=== PATIENT | male | born 1955 | race Caucasian/White ===

== ENCOUNTER 2020-03-01 21:09 | Observation (INO) | payer OTHER, SELFPAY ==
--- NOTE | ~2020-03-01 | XR_ITS ---
EXAMINATION: XR chest 2V DATE: 03/01/2020 22:03 INDICATION: Left-sided chest pain TECHNIQUE: PA and lateral views of the chest were obtained. COMPARISON: Chest graft dated 02/03/[address] dated 03/02/2015 FINDINGS: Calcified right middle lobe nodule consistent with old granulomatous disease. No other airspace opaci ties, pulmonary edema, pleural effusion or pneumothorax. The cardiomediastinal silhouette is normal. Post cystectomy clips in the right upper quadrant. IMPRESSION: 1. No acute cardiopulmonary disease. Reviewed, dictated and finalized at location A.
--- NOTE | 2020-03-01 21:00 | ECG_ITS ---
Measurements Intervals [place] Rate: 107 P: -30 DE: 192 QRS: 144 QRSD: 150 T: -11 QT: 369 QTc: 493 Interpretive Statements SINUS TACHYCARDIA VENTRICULAR PREMATURE COMPLEX RIGHT BUNDLE BRANCH BLOCK LEFT POSTERIOR FASCICULAR BLOCK ST-T WAVE ABNORMALITY IN INFERIOR LEADS- CONSIDER ISCHEMIA BASELINE ARTIFACT- II, III, AVR, AVF ABNORMAL ECG Electronically Signed On 03-02-2020 7:04:02 CDT by Usman Phillips D.O.
[2020-03-01 21:09] VITALS: BP 140/88; PULSE 107; RESP 17; TEMP 36.4; O2SAT 97
[2020-03-01 21:13] VITALS: PULSE 108
--- NOTE | 2020-03-01 21:17 | ED.CHESTPAIN ---
HPI - Chest Pain General Chief Complaint: Chest Pain Stated Complaint: chest pain Source: RN notes reviewed History of Present Illness HPI narrative: Patient presents emergency department from home for chest pain. Patient states pain is been present for the past 2 days. Pain is located left side of the chest and is described as a soreness. States is worse with exertion and improves with rest. He states he does have a history of 2 previous stents he denies any fevers or chills shortness of breath abdominal pain vomiting or diarrhea. Notes mild nausea. He denies any other symptoms at this time patient was given aspirin 324 mg by EMS and 1 nitro which patient states made minimal change Related Data Home Medications Medication Instructions Recorded Confirmed Januvia 100 mg PO DAILY 07/28/19 07/28/19 Levemir FlexTouch U-100 Insuln 57 unit SUBCUT AC 07/28/19 07/28/19 aspirin 81 mg PO DAILY 07/28/19 07/28/19 atorvastatin 20 mg PO DAILY 07/28/19 07/28/19 glimepiride 2 mg PO DAILY 07/28/19 07/28/19 Allergies Allergy/AdvReac Type Severity Reaction Status Date / Time No Known Allergies Allergy Verified 03/01/20 21:14 Review of Systems Review of Systems: Narrative: Gen.: Denies fevers or chills ENT: Denies congestion Respiratory: Denies shortness of breath or cough CV: See HPI GI: Denies abdominal pain emesis or diarrhea. Reports mild nausea denies burning, urgency, frequency or hematuria Musculoskeletal: Denies back pain or muscle pain Neuro: Denies numbness, tingling, weakness or focal weakness Skin: Denies rash Except as documented, all other systems reviewed and negative [facility] Past Medical History Medical History CAD S/P percutaneous coronary angioplasty [facility] Cardiology with 2x PCI placed in the past Cataracts, bilateral s/p removal Detached retina, right HTN (hypertension) Hyperlipidemia Leukocytosis CINDY (obstructive sleep apnea) Noncompliant with CPAP Type II diabetes mellitus Surgical History Surgical History H/O inguinal hernia repair Left inguinal hernia repair with mesh by Dr. Ladd in 2010. History of cardiac catheterization History of cholecystectomy Hx of cataract removal with insertion of prosthetic lens S/P wisdom tooth extraction Stented coronary artery Social History Social History Social History: He lives in [place], [place] with his and daughter. 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 Smoking status: Never smoker Alcohol intake: current Drinks per week: 2 Substance use: never Gender identity (if verbalized by the patient): Male Spiritual care concerns: No Agree to blood products: Yes Exam Narrative: Exam Narrative: APPEARANCE: No acute distress, nontoxic, resting in bed EYES: EOMI HEENT: Normocephalic, atraumatic, OMM RESPIRATORY: No respiratory distress Clear to auscultation bilaterally with no rhonchi wheezing or rales. CARDIOVASCULAR: Regular rate and rhythm without murmurs rubs or gallops. ABDOMINAL: Soft, nontender, nondistended, no rebound or guarding MUSCULOSKELETAl: Moves all extremities. No clubbing, cyanosis or edema. NEURO: Awake and alert. Following commands, speech normal, no focal deficits SKIN:: Warm, dry. No rashes lesions or abrasions PSYCHIATRIC: Normal affect/mood, Course Course Emergency Course: Patient is chest pain-free following morphine Discussed with Dr. Meier presentation work-up. Agrees with consult at this time Discussed Dr. Fountain presentation work-up. Agrees with admission Discussed with patient and family results of workup and diagnosis. Discussed need for admission. Patient and family understand and agree to current treatment plan Vital Si
[2020-03-01] MEDS: MORPHINE SULFATE 4 MG/ML INJ 2 MG IV PUSH (21:24)
[2020-03-01 21:33] LABS: Basophils Percent Auto 0.2 % (0.2-1.2); Eosinophils Absolute Auto 0.1 K/mm3 (0-0.3); Eosinophils Percent Auto 0.9 % (0-4.4); Hematocrit 46.1 % (42.0-52.0); Hemoglobin 15.4 g/dL (14.0-18.0); Immature Granulocyte Absolute 0.05 K/mm3 (0.00-0.031); Immature Granulocyte Percent A 0.4 % (0-0.5); Lymphocytes Absolute Auto 2.77 K/mm3 (0.9-3.2); Lymphocytes Percent Auto 21.1 % (18.3-44.2); Mean Corpuscular HGB Conc 33.4 g/dl (32-36); Mean Corpuscular Hemoglobin 31.4 pg (26-34); Mean Corpuscular Volume 93.9 fl (80-100); Mean Platelet Volume 8.6 fl (7.4-10.4); Monocytes Percent Auto 7.4 % (2.6-8.5); Neutrophils Absolute Auto 9.2 K/mm3 (1.3-6.7); Platelet Count Result 301 k/mm3 (150-375); Red Blood Count 4.91 M/mm3 (4.6-6.20); Red Cell Distribution Width 12.2 % (11.5-14.5); White Blood Count 13.1 K/mm3 (4.5-10.0)
[2020-03-01 21:42] LABS: INR 0.9; Prothrombin Time 12.2 Seconds (11.1-14.7)
[2020-03-01 21:43] LABS: Partial Thromboplastin Time 25.9 SECONDS (22.3-36.8)
[2020-03-01 21:45] LABS: Blood Urea Nitrogen 24 mg/dL (9-20); Calcium 9.6 mg/dL (8.4-10.2); Carbon Dioxide 22 mmol/L (22-30); Chloride 105 mmol/L (98-107); Estimated CRCL calculation 65 ml/min; Estimated Glomerular Filt Rate > 60; Glucose 162 mg/dL (75-110); Potassium 4.2 mmol/L (3.4-5.0); Sodium 137 mmol/L (137-145)
[2020-03-01 21:51] VITALS: BP 123/64; PULSE 98; RESP 16; O2SAT 98
[2020-03-01 21:57] LABS: Troponin I < 0.012 ng/mL (0.000-0.034)
[2020-03-01 21:59] LABS: Alanine Aminotransferase 31 U/L (4-50); Alkaline Phosphatase 60 U/L (38-126); Aspartate Amino Transferase 22 U/L (17-59); Bilirubin,Total 0.2 mg/dL (0.2-1.3); Lipase 142 U/L (23-300)
[2020-03-01 22:31] VITALS: BP 124/87; PULSE 97; RESP 14; O2SAT 99
--- NOTE | 2020-03-01 23:02 | PM.IMHP ---
H&P: HPI History of Present Illness Chief complaint: chest pain Narrative: This is a pleasant 64 year old male with known CAD+ s/p #2 stents who presented to the hospital with a complaint of intermittent chest discomfort over the past 3 days which resolves with rest. The patient has noticed that his chest pain is associated with exertional activities and lasts less than 10 minutes in duration. His chest pain tonight resolved after he received Nitroglycerin en route to the hospital. His last cardiac cath was in 2013. Associated symptoms include nausea but no vomiting. He denies any fevers, cough, shortness of breath, abdominal pain, dysuria, hematuria, rectal bleeding, or LE edema. The patient's initial troponin was negative tonight. Cardiology was consulted by ER provider and has asked that we admit the patient to the hospital for cardiac rule out. Review of Systems Review of Systems: All systems reviewed & are unremarkable except as noted in HPI and below PMFSH Past Medical History Medical History CAD S/P percutaneous coronary angioplasty [facility] Cardiology with 2x PCI placed in the past Cataracts, bilateral s/p removal Detached retina, right HTN (hypertension) Hyperlipidemia Leukocytosis CINDY (obstructive sleep apnea) Noncompliant with CPAP Type II diabetes mellitus Surgical History Surgical History H/O inguinal hernia repair Left inguinal hernia repair with mesh by Dr. Ladd in 2010. History of cardiac catheterization History of cholecystectomy Hx of cataract removal with insertion of prosthetic lens S/P wisdom tooth extraction Stented coronary artery Family History Family History Mother Depression Family history of diabetes mellitus in first degree relative Family history of heart disease in male family member before age 55 FH: gallbladder disease Father Carcinoma of colon Malignant neoplasm of prostate Family history of diabetes mellitus in first degree relative Sibling Family history of diabetes mellitus in first degree relative Hypertension Grandparent Cerebrovascular accident Family history of malignant neoplasm of breast Other Diabetes mellitus Family history of cardiovascular disease Social History Social History Social History: He lives in [place], [place] with his and daughter. 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 Smoking status: Never smoker Alcohol intake: current Drinks per week: 2 Substance use: never Gender identity (if verbalized by the patient): Male Spiritual care concerns: No Agree to blood products: Yes Meds Home Medications and Allergies Home Medications Medication Instructions Recorded Confirmed Type Januvia 100 mg PO DAILY 07/28/19 03/02/20 History Levemir FlexTouch U-100 Insuln 57 unit SUBCUT DAILY 07/28/19 03/02/20 History aspirin 81 mg PO DAILY 07/28/19 03/02/20 History atorvastatin 20 mg PO DAILY 07/28/19 03/02/20 History glimepiride 2 mg PO DAILY 07/28/19 03/02/20 History insulin syringe-needle U-100 0.5 #100 each 09/02/19 03/02/20 Rx mL 31 gauge x 5/16 lisinopril 40 mg tablet 40 mg PO DAILY #90 tablet 02/20/20 03/02/20 Rx metformin 1,000 mg tablet 1,000 mg PO BID #60 tablet 02/24/20 03/02/20 Rx Allergies Allergy/AdvReac Type Severity Reaction Status Date / Time No Known Allergies Allergy Verified 03/01/20 21:14 Vital Signs Vital Signs - 24 hr 03/01/20 21:09 03/01/20 21:13 03/01/20 21:51 Temperature 36.4 C Pulse Rate 107 H 108 H 98 Respiratory Rate 17 16 Blood Pressure 140/88 123/64 Pulse Oximetry 97 98 03/01/20 22:31 Temperature Pulse Rate 97 Respiratory Rate 14
[2020-03-01 23:32] VITALS: BP 123/90; PULSE 92; RESP 18; O2SAT 99
[2020-03-02] VITALS (29 sets, daily range): BP systolic 109–170; BP diastolic 58–86; PULSE 65–104; RESP 14–20; TEMP 35.8–36.7; O2SAT 95–100; BMI 28.9
[2020-03-02 00:37] LABS: Troponin I < 0.012 ng/mL (0.000-0.034)
[2020-03-02 00:52] LABS: Glucose Point of Care 196 (65-105)
[2020-03-02 03:47] LABS: Blood Urea Nitrogen 26 mg/dL (9-20); Calcium 9.3 mg/dL (8.4-10.2); Carbon Dioxide 25 mmol/L (22-30); Chloride 104 mmol/L (98-107); Cholesterol 94 mg/dL (0-200); Estimated CRCL calculation 79 ml/min; Estimated Glomerular Filt Rate > 60; Glucose 239 mg/dL (75-110); HDL Direct 28 mg/dL; Potassium 4.3 mmol/L (3.4-5.0); Sodium 135 mmol/L (137-145); Triglycerides 137 mg/dL (<150)
[2020-03-02 03:58] LABS: LDL Cholesterol Direct 45 mg/dL; Troponin I < 0.012 ng/mL (0.000-0.034)
--- NOTE | 2020-03-02 06:00 | ADMGEN ---
This patient, Yadiel Gil, was admitted to IMU Room 201-01 FROM ER 03/02/2043. Patient/family oriented to hospital policies and general routines including ID bracelet, bed and alarms, visiting hours, pain management, procedures, bathroom and other care routines, personal items, smoking policy, room service/diet, and visiting hours. Valuables list has been completed. Information on how to activate the Rapid Response Team has been discussed. Patient/Family are encouraged to report perceived risks to care and to ask questions if they do not understand what they are told or what they should do.
[2020-03-02 06:20] LABS: Glucose Point of Care 187 (65-105)
[2020-03-02 08:51] LABS: Hemoglobin A1C 8.5 % (<5.7)
[2020-03-02] MEDS: ATORVASTATIN 20 MG TABLET PO (09:51)
[2020-03-02] MEDS: lisinopriL 20 MG TABLET 40 MG PO (09:51)
[2020-03-02] MEDS: ASPIRIN 81 MG ENTERIC TABLET PO (09:51)
--- NOTE | 2020-03-02 13:03 | PM.CNCAR ---
Assessment and Plan Assessment and plan (1) Unstable angina: Code(s): I20.0 - Unstable angina Status: Acute Assessment and Plan: Negative serial troponins. Twelve lead EKG without significant ischemic changes, however, very recent anginal symptoms with exertional chest pain, excessive fatigue resolve with rest and nitroglycerin with known history of CAD with previous drug-eluting stent to LAD and diagonal branch with slight decline in LV systolic function most recent echocardiogram. Given return of mild chest discomfort at rest proceed with invasive angiography. Delineation of coronary anatomy. Risks, benefits, and alternatives explained. Patient verbalized understanding and agreed with plan of care. Discussed with Dr. Haddad who agrees to perform coronary angiography today. Patient remains NPO. Continue aspirin 81 mg daily, lisinopril, atorvastatin. Add carvedilol 3.125 mg twice daily. Further recommendation to follow after coronary angiography. (2) CAD (coronary artery disease): Code(s): I25.10 - Atherosclerotic heart disease of [place] coronary artery without angina pectoris Status: Acute Assessment and Plan: As above. Further recommendation to follow after coronary angiography. (3) Ischemic cardiomyopathy: Code(s): I25.5 - Ischemic cardiomyopathy Status: Acute Assessment and Plan: Well compensated. [place] heart Association class 2 symptoms. EF 37% by echo 02/27/2020. Previous EF 40-45% at least since 2014. Optimize medical therapy with addition of beta-blockers. (4) Type II diabetes mellitus: Qualifiers: Diabetes mellitus fci insulin use: with termite treater helper use Diabetes mellitus complication status: without complication Qualified Code(s): E11.9 - Type 2 diabetes mellitus without complications; Z79.4 - medical terminologist (current) use of insulin Code(s): E11.9 - Type 2 diabetes mellitus without complications Status: Chronic Assessment and Plan: Per primary service. (5) HTN (hypertension): Qualifiers: Hypertension type: essential hypertension Qualified Code(s): I10 - Essential (primary) hypertension Code(s): I10 - Essential (primary) hypertension Status: Chronic Assessment and Plan: Fair control at this time. (6) Hyperlipidemia: Qualifiers: Hyperlipidemia type: unspecified Qualified Code(s): E78.5 - Hyperlipidemia, unspecified Code(s): E78.5 - Hyperlipidemia, unspecified Status: Chronic Assessment and Plan: LDL well controlled 45 on low-dose atorvastatin 20 mg daily. History of Present Illness History of Present Illness Consult date/time: Date of service: 03/02/20 13:03 This is a cardiology consultation at the request of Dr. Fountain and the [facility] for our opinion regarding chest pain and coronary artery disease. Requesting physician: Des Fountain MD Consult reason: chest pain Reason For Visit: chest pain Narrative: Patient is a very pleasant 64-year-old male with a past medical history significant for coronary artery disease previous drug-eluting stent to the 1st diagonal branch 2002 and a drug-eluting stent to LAD November 2013 with history of ischemic cardiomyopathy ejection fraction 40-45% most recently 37% by echo February 26, diabetes mellitus, hypertension, dyslipidemia was last seen in the office by Dr. Fernandez 02/06/2020 with no complaints of angina and fatigue. Patient states approximately 2 days ago he noted onset of exertional chest pain described as an achy soreness in the left chest extending to the left arm which would resolve with rest. He notes he would not have to walk very far such as across the room to have onset of symptoms. Chest pain resolved approximately 10 minutes and given recurrent symptoms and worsening fatigue present to the ER. He received sublingual nitroglycerin in route which resolved his chest pain. He states ches
[2020-03-02 13:04] LABS: Glucose Point of Care 162 (65-105)
--- NOTE | 2020-03-02 14:24 | WPDMODSED ---
Moderate Sedation Note-Pt Data Patient Data Diagnosis: Coronary artery disease with previous PCI to LAD and diagonal left ventricular systolic dysfunction hypertension chest pain concerning regarding recurrent ischemia Present Complaint: intermittent chest pain Procedure to be performed/Plan: left heart catheterization, possible PCI Allergies Allergy/AdvReac Type Severity Reaction Status Date / Time No Known Allergies Allergy Verified 03/01/20 21:14 Home Medications Medication Instructions Recorded Confirmed Type Januvia 100 mg PO DAILY 07/28/19 03/02/20 History Levemir FlexTouch U-100 Insuln 57 unit SUBCUT DAILY 07/28/19 03/02/20 History aspirin 81 mg PO DAILY 07/28/19 03/02/20 History atorvastatin 20 mg PO DAILY 07/28/19 03/02/20 History glimepiride 2 mg PO DAILY 07/28/19 03/02/20 History insulin syringe-needle U-100 0.5 #100 each 09/02/19 03/02/20 Rx mL 31 gauge x 5/16 lisinopril 40 mg tablet 40 mg PO DAILY #90 tablet 02/20/20 03/02/20 Rx metformin 1,000 mg tablet 1,000 mg PO BID #60 tablet 02/24/20 03/02/20 Rx Current Medications: Active Medications Aspirin (Aspirin Ec) 81 mg PO QAM [facility] Last Admin: 03/02/20 09:51 Dose: 81 mg Documented by: Atorvastatin Calcium (Lipitor) 20 mg PO DAILY [facility] Last Admin: 03/02/20 09:51 Dose: 20 mg Documented by: Dextrose (Dextrose 50% Syringe) 12.5 gm IV PUSH PRN PRN; Protocol PRN Reason: Hypoglycemia Glucagon (Glucagon For Inj) 1 mg IM PRN PRN; Protocol PRN Reason: Hypoglycemia Dextrose (Dextrose 5% 1,000 Ml) 1,000 mls @ 100 mls/hr IVPB PRN PRN; Protocol PRN Reason: Hypoglycemia Sodium Chloride (Normal Saline Iv) 1,000 mls @ 125 mls/hr IV CONT .Q8H ONE Stop: 03/02/20 22:22 Insulin Aspart (Novolog) 2 - 5 units SUB-Q Q6HR [facility]; Protocol Last Admin: 03/02/20 13:28 Dose: Not Given Documented by: Insulin Detemir (Levemir) 57 units SUB-Q DAILY [facility] Last Admin: 03/02/20 13:29 Dose: Not Given Documented by: Lisinopril (Prinivil) 40 mg PO DAILY [place] Last Admin: 03/02/20 09:51 Dose: 40 mg Documented by: Nitroglycerin (Nitrostat Subl 0.4 Mg (1/150)) 0.4 mg SUBLINGUAL Q5MIN PRN PRN Reason: Chest Pain Sedation/Anesthesia: No previous sedation/anesthesia problems (including family history). [facility] Past Medical History Medical History CAD S/P percutaneous coronary angioplasty [facility] Cardiology with 2x PCI placed in the past Cataracts, bilateral s/p removal Detached retina, right HTN (hypertension) Hyperlipidemia Leukocytosis CINDY (obstructive sleep apnea) Noncompliant with CPAP Type II diabetes mellitus Surgical History Surgical History H/O inguinal hernia repair Left inguinal hernia repair with mesh by Dr. Ladd in 2010. History of cardiac catheterization History of cholecystectomy Hx of cataract removal with insertion of prosthetic lens S/P wisdom tooth extraction Stented coronary artery Family History Family History Mother Depression Family history of diabetes mellitus in first degree relative Family history of heart disease in male family member before age 55 FH: gallbladder disease Father Carcinoma of colon Malignant neoplasm of prostate Family history of diabetes mellitus in first degree relative Sibling Family history of diabetes mellitus in first degree relative Hypertension Grandparent Cerebrovascular accident Family history of malignant neoplasm of breast Other Diabetes mellitus Family history of cardiovascular disease Social History Social History Social History: He lives in [place], [place] with his and daughter. 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 Smoking
--- NOTE | 2020-03-02 14:29 | WPDCARDPROC ---
Cardiac Cath Procedure Note Date of procedure:: 03/02/20 Performing physician:: Kenroy Haddad MD Indication:: coronary artery disease with p revious PCI recurrent chest pain Brief clinical history:: 64-year-old patient with a history of coronary disease with previous angioplasty and stenting to the LAD and diagonal. The patient has clinically been doing quite well and recently has developed recurrent chest pain both with and without exertion prompting significant concern for recurrent ischemia. Procedure Procedure performed:: Recurrent left heart catheterization with left ventriculography and coronary angiography femoral artery angiogram through the sheath Angio-Seal to right femoral artery Sedation/Medication given:: fentanyl 50 mg Versed 2 mg case start time 1:59 p.m. case end time 2:17 p.m. sedation provided by Trish Hughes RN, trained observer Access site:: right femoral artery Estimated blood loss:: 10-15 cc Procedure note:: patient was brought to the cardiac catheterization lab in the postabsorptive state the right femoral triangle was prepared and draped in the usual fashion. Anesthesia was provided with 1% lidocaine infiltrated locally. Using the modified Seldinger technique a 5 Indonesian sheath was placed into the common femoral artery. After this left heart catheterization was carried out. A 5 Indonesian angled pigtail catheter was used to document left-sided hemodynamics as well as to injected LV g in the ALVARENGA projection. After this I utilized a standard JR4 catheter to attempt to engage the right coronary artery this was unsuccessful I gauge the right coronary injected using a Jorge Luis no torque catheter. After this the left coronary was engaged and injected using a standard 5 Indonesian FL4 catheter. The cine angiograms were then reviewed and the case was terminated. An angiogram was done of the femoral artery through the sheath after which an Angio-Seal device was deployed at the site of the arterial puncture with a good hemostatic result. He left the matlab developer with no evidence of any groin hematoma and no sign of any procedural complications Findings:: hemodynamics: Central aortic pressure was 36/70 left ventricle 134/3 end-diastolic pressure 18. There was no systolic gradient on pullback across the aortic valve. The left ventricle is modestly enlarged and appears to be concentrically hypertrophied. Global hypocontractility is noted in all segments I would manager research development the visual ejection fraction visually to be 30-35%. Left main coronary is widely patent lad is a medium caliber vessel extending down to around the apex the proximal segment of the LAD is very minimally narrowed less than 20-30%. There is a stent in the LAD immediately after the major diagonal branch this segment of the LAD is patent with no loss of lumen there is ML 3 flow down to the apex. There is also a stent in the proximal aspect of the major diagonal branch which also shows that segment to be widely patent with ML 3 flow in the diagonal no loss of lumen in that stent either. Circumflex is a moderate caliber vessel giving rise to the marginal branches and is smooth and angiographically free of disease right coronary artery is dominant to the posterior circulation there is will minimal luminal irregularity in the trunk of the are RCA. The RPDA is a very small vessel angiographically which has proximal 60% stenosis at its origin. The vessel however is exceedingly small. There PL branches are free of significant disease Conclusion:: 1. angiographically modest coronary artery disease with patent stents in the proximal LAD and diagonal branches described above 2. angiographically no other significant coronary lesions save for potentially an ostial stenosis at the RPDA origin which angiographically is a very small vessel in this gentleman 3. left ventricular hypertrophy with global systolic hypocontractility, out of proportion to t
--- NOTE | 2020-03-02 15:19 | SUR.PHASEII ---
1430-pt into Phase II recovery. No distress noted. AOx4. Groin soft and non-tender, no evidence of bleeding or hematoma noted. Will continue to monitor.
--- NOTE | 2020-03-02 16:08 | SUR.PHASEII ---
1530-taken to IMU and groin and pulse inspected by LILIBETH Olivares. Groin soft and no evidence of bleeding or hematoma noted. Strong right pedal pulse noted. No distress noted at time of transfer back to floor.
--- NOTE | 2020-03-02 16:13 | PM.IMPN ---
Progress Note: A&P Assessment and Plan (1) Chest pain: Qualifiers: Chest pain type: unspecified Qualified Code(s): R07.9 - Chest pain, unspecified Code(s): R07.9 - Chest pain, unspecified Status: Acute Assessment and Plan: r/o ACS due to history of CAD status post stent placement Troponins were negative x3. Telemetry showed normal sinus rhythm with a heart rate of 85 beats per minute, occasional PVCs and wide complex QRS is noted on tele. EKG from arrival showed sinus tachycardia with heart rate of 107, right bundle-branch block, PVC noted and was read ST T-wave abnormality in inferior leads and to consider ischemia. Cardiology evaluated the patient this morning and performed a cardiac catheterization this afternoon which showed modest coronary artery disease with patent stents, no other significant coronary lesions. LV hypertrophy with global systolic hypocontractility was also noted. Patient is feeling better at this time without any more chest pain since admission. Monitor for chest pain. Nitroglycerin SL for chest pain. Continue ASA therapy. Cardiology input is greatly appreciated. (2) Ischemic cardiomyopathy: Code(s): I25.5 - Ischemic cardiomyopathy Status: Acute Assessment and Plan: Patient recently had an echocardiogram in the office on 02/27/2020 which showed his LVEF was 37%. This is reduced from his prior EF of 40-45% in 2013. Cardiology is starting the patient on carvedilol 3.125 mg twice daily Continue patient's aspirin, lisinopril at this time. The patient otherwise seems well compensated. Will continue monitoring the patient overnight and his blood pressure and heart rate with the addition of carvedilol today. (3) Leukocytosis: Qualifiers: Leukocytosis type: bandemia Qualified Code(s): D72.825 - Bandemia Code(s): D72.829 - Elevated white blood cell count, unspecified Status: Acute Assessment and Plan: Patient had leukocytosis at 13,100 on arrival with normal neutrophil count. Will recheck in the morning to see if it is still elevated but there is no acute signs of infection at this time. He denies any urinary symptoms and chest x-ray showed no acute cardiopulmonary disease. Monitor CBC daily (4) Type II diabetes mellitus: Qualifiers: Diabetes mellitus snf insulin use: with long term care administrator use Diabetes mellitus complication status: without complication Qualified Code(s): E11.9 - Type 2 diabetes mellitus without complications; Z79.4 - terminal operator (current) use of insulin Code(s): E11.9 - Type 2 diabetes mellitus without complications Status: Chronic Assessment and Plan: Serum glucose this morning was 239. Patient's oral home diabetes meds are on hold at this time. Continue home insulin. Hemoglobin A1c was 8.5%, and does not well controlled. Educated the patient on checking glucose 5 times a day and following with his primary care provider for further adjustment if necessary. Accuchecks, SSI Coverage, hypoglycemic protocol. (5) Hyperlipidemia: Qualifiers: Hyperlipidemia type: unspecified Qualified Code(s): E78.5 - Hyperlipidemia, unspecified Code(s): E78.5 - Hyperlipidemia, unspecified Status: Chronic Assessment and Plan: Continue atorvastatin PO. (6) HTN (hypertension): Qualifiers: Hypertension type: essential hypertension Qualified Code(s): I10 - Essential (primary) hypertension Code(s): I10 - Essential (primary) hypertension Status: Chronic Assessment and Plan: Monitor blood pressure. Continue home anithypertensives. Patient was also started on Coreg today due to ischemic cardiomyopathy. Will mo
[2020-03-02 17:23] LABS: Glucose Point of Care 129 (65-105)
[2020-03-02 20:51] LABS: Glucose Point of Care 217 (65-105)
[2020-03-02] MEDS: FAMOTIDINE 20 MG TABLET PO (21:49)
[2020-03-02] MEDS: carvediloL 3.125 MG TABLET PO (21:49)
[2020-03-03] VITALS (11 sets, daily range): BP systolic 110–125; BP diastolic 63–76; PULSE 71–92; RESP 20; TEMP 35.6–36.7; O2SAT 96–99
[2020-03-03 04:45] LABS: Hematocrit 44.4 % (42.0-52.0); Hemoglobin 14.8 g/dL (14.0-18.0); Mean Corpuscular HGB Conc 33.3 g/dl (32-36); Mean Corpuscular Hemoglobin 30.8 pg (26-34); Mean Corpuscular Volume 92.3 fl (80-100); Mean Platelet Volume 8.5 fl (7.4-10.4); Platelet Count Result 289 k/mm3 (150-375); Red Blood Count 4.81 M/mm3 (4.6-6.20); Red Cell Distribution Width 12.1 % (11.5-14.5); White Blood Count 12.3 K/mm3 (4.5-10.0)
[2020-03-03 04:56] LABS: Blood Urea Nitrogen 19 mg/dL (9-20); Calcium 8.6 mg/dL (8.4-10.2); Carbon Dioxide 26 mmol/L (22-30); Chloride 106 mmol/L (98-107); Estimated CRCL calculation 88 ml/min; Estimated Glomerular Filt Rate > 60; Glucose 153 mg/dL (75-110); Sodium 137 mmol/L (137-145)
[2020-03-03 08:19] LABS: Glucose Point of Care 135 (65-105)
[2020-03-03] MEDS: ASPIRIN 81 MG ENTERIC TABLET PO (08:30)
[2020-03-03] MEDS: carvediloL 3.125 MG TABLET PO (08:30)
[2020-03-03] MEDS: FAMOTIDINE 20 MG TABLET PO (08:31)
[2020-03-03] MEDS: INSULIN DETEMIR 100 UNITS/ML 57 UNITS SUB-Q (08:33)
--- NOTE | 2020-03-03 11:39 | P.DS_ITS ---
DS: Admitting Diagnosis Admitting Diagnosis Admitting Diagnosis: Chest pain, unspecified DS: Discharge Diagnosis Discharge Diagnosis (1) Chest pain: Qualifiers: Chest pain type: unspecified Qualified Code(s): R07.9 - Chest pain, unspecified Code(s): R07.9 - Chest pain, unspecified Status: Acute Assessment and Plan: r/o ACS due to history of CAD status post stent placement * Troponins were negative x3. * Telemetry showed normal sinus rhythm with a heart rate of 89 beats per minute, occasional PVCs and wide complex QRS is noted on tele. HR went up to 120 bpm this morning. Started Coreg for better rate control with new ischemic CM * EKG from arrival showed sinus tachycardia with heart rate of 107, right bundle-branch block, PVC noted and was read ST T-wave abnormality in inferior leads and to consider ischemia. * Cardiology evaluated the patient and preformed a cardiac catheterization yesterday which showed modest coronary artery disease with patent stents, no other significant coronary lesions. LV hypertrophy with global systolic hypocontractility was also noted. * Patient is feeling better at this time without any more chest pain since admission. * Cardiology has plans to the discharge him today to follow-up in the office with Dr. Fernandez. (2) Ischemic cardiomyopathy: Code(s): I25.5 - Ischemic cardiomyopathy Status: Acute Assessment and Plan: Patient recently had an echocardiogram in the office on 02/27/2020 which showed his LVEF was 37%. This is reduced from his prior EF of 40-45% in 2013. * Cardiology is starting the patient on carvedilol 3.125 mg twice daily * Continue patient's aspirin, lisinopril at this time. * The patient otherwise seems well compensated. * He will follow-up with cardiology as an outpatient (3) Leukocytosis: Qualifiers: Leukocytosis type: bandemia Qualified Code(s): D72.825 - Bandemia Code(s): D72.829 - Elevated white blood cell count, unspecified Status: Acute Assessment and Plan: Patient had leukocytosis at 13,100 on arrival with normal neutrophil count. * Still with slight leukocytosis but improved to 12,300. * Vitals are Stable, afebrile, non tachycardic at rest, normal oxygenation and respiratory rate. * He denies any urinary symptoms and chest x-ray showed no acute cardiopulmonary disease. * Will have him follow his primary care provider within 1 week (4) Type II diabetes mellitus: Qualifiers: Diabetes mellitus complication status: without complication Diabetes mellitus senior living insulin use: with senior living use Qualified Code(s): E11.9 - Type 2 diabetes mellitus without complications; Z79.4 - termite treater helper (current) use of insulin Code(s): E11.9 - Type 2 diabetes mellitus without complications Status: Chronic Assessment and Plan: Serum glucose this morning was 239. Patient's oral home diabetes meds are on hold at this time. * Continue home insulin. * Hemoglobin A1c was 8.5%, and it is not well controlled. * Patient states he does not check his glucose at home like he should. * Educated the patient on checking glucose 5 times a day and following with his primary care provider for further adjustment if necessary. Educated him on exercise as well as changes to his diet. * Patient understands and agrees the plan all questions answered (5) Hyperlipidemia: Qual
--- NOTE | 2020-03-03 11:39 | PM.DS ---
DS: Admitting Diagnosis Admitting Diagnosis Admitting Diagnosis: Chest pain, unspecified DS: Discharge Diagnosis Discharge Diagnosis (1) Chest pain: Qualifiers: Chest pain type: unspecified Qualified Code(s): R07.9 - Chest pain, unspecified Code(s): R07.9 - Chest pain, unspecified Status: Acute Assessment and Plan: r/o ACS due to history of CAD status post stent placement Troponins were negative x3. Telemetry showed normal sinus rhythm with a heart rate of 89 beats per minute, occasional PVCs and wide complex QRS is noted on tele. HR went up to 120 bpm this morning. Started Coreg for better rate control with new ischemic CM EKG from arrival showed sinus tachycardia with heart rate of 107, right bundle-branch block, PVC noted and was read ST T-wave abnormality in inferior leads and to consider ischemia. Cardiology evaluated the patient and preformed a cardiac catheterization yesterday which showed modest coronary artery disease with patent stents, no other significant coronary lesions. LV hypertrophy with global systolic hypocontractility was also noted. Patient is feeling better at this time without any more chest pain since admission. Cardiology has plans to the discharge him today to follow-up in the office with Dr. Fernandez. (2) Ischemic cardiomyopathy: Code(s): I25.5 - Ischemic cardiomyopathy Status: Acute Assessment and Plan: Patient recently had an echocardiogram in the office on 02/27/2020 which showed his LVEF was 37%. This is reduced from his prior EF of 40-45% in 2014. Cardiology is starting the patient on carvedilol 3.125 mg twice daily Continue patient's aspirin, lisinopril at this time. The patient otherwise seems well compensated. He will follow-up with cardiology as an outpatient (3) Leukocytosis: Qualifiers: Leukocytosis type: bandemia Qualified Code(s): D72.825 - Bandemia Code(s): D72.829 - Elevated white blood cell count, unspecified Status: Acute Assessment and Plan: Patient had leukocytosis at 13,100 on arrival with normal neutrophil count. Still with slight leukocytosis but improved to 12,300. Vitals are Stable, afebrile, non tachycardic at rest, normal oxygenation and respiratory rate. He denies any urinary symptoms and chest x-ray showed no acute cardiopulmonary disease. Will have him follow his primary care provider within 1 week (4) Type II diabetes mellitus: Qualifiers: Diabetes mellitus complication status: without complication Diabetes mellitus bed bug exterminator insulin use: with residential use Qualified Code(s): E11.9 - Type 2 diabetes mellitus without complications; Z79.4 - vermin exterminator (current) use of insulin Code(s): E11.9 - Type 2 diabetes mellitus without complications Status: Chronic Assessment and Plan: Serum glucose this morning was 239. Patient's oral home diabetes meds are on hold at this time. Continue home insulin. Hemoglobin A1c was 8.5%, and it is not well controlled. Patient states he does not check his glucose at home like he should. Educated the patient on checking glucose 5 times a day and following with his primary care provider for further adjustment if necessary. Educated him on exercise as well as changes to his diet. Patient understands and agrees the plan all questions answered (5) Hyperlipidemia: Qualifiers: Hyperlipidemia type: unspecified Qualified Code(s): E78.5 - Hyperlipidemia, unspecified Code(s): E78.5 - Hyperlipidemia, unspecified Status: Chronic Assessment and Plan: Continue atorvastatin PO. (6) HTN (hypertension): Qualifiers: Hypertension type: essential hypertensi
--- NOTE | 2020-03-03 12:19 | PM.PNCARD ---
Progress Note: A&P Assessment and Plan (1) Unstable angina: Code(s): I20.0 - Unstable angina Status: Acute Assessment and Plan: Cardiac catheterization 03/02/2020: angiographically modest coronary artery disease with patent stents in the proximal LAD and diagonal branches. Angiographically no other significant coronary lesions save for potentially an ostial stenosis at the RPDA origin which angiographically is a very small vessel. Left ventricular hypertrophy with global systolic hypocontractility, out of proportion to the coronary artery disease that is currently present Continue aspirin 81 mg daily, lisinopril, atorvastatin. Carvedilol 3.125 mg twice daily was started yesterday evening. Will up titrate as an outpatient. (2) CAD (coronary artery disease): Qualifiers: Coronary Disease-Associated Artery/Lesion type: [place] artery [place] vs. transplanted heart: [place] heart Associated angina: without angina Qualified Code(s): I25.10 - Atherosclerotic heart disease of [place] coronary artery without angina pectoris Code(s): I25.10 - Atherosclerotic heart disease of [place] coronary artery without angina pectoris Status: Acute Assessment and Plan: As above. (3) Ischemic cardiomyopathy: Code(s): I25.5 - Ischemic cardiomyopathy Status: Acute Assessment and Plan: Well compensated. [place] heart Association class 2 symptoms. EF 37% by echo 02/27/2020. Previous EF 40-45% at least since 2013. Optimize medical therapy with addition of beta-blockers. (4) Type II diabetes mellitus: Qualifiers: Diabetes mellitus [facility] insulin use: with termite inspector use Diabetes mellitus complication status: without complication Qualified Code(s): E11.9 - Type 2 diabetes mellitus without complications; Z79.4 - termite renewal inspector (current) use of insulin Code(s): E11.9 - Type 2 diabetes mellitus without complications Status: Chronic Assessment and Plan: Per primary service. (5) HTN (hypertension): Qualifiers: Hypertension type: essential hypertension Qualified Code(s): I10 - Essential (primary) hypertension Code(s): I10 - Essential (primary) hypertension Status: Chronic Assessment and Plan: Fair control at this time. (6) Hyperlipidemia: Qualifiers: Hyperlipidemia type: unspecified Qualified Code(s): E78.5 - Hyperlipidemia, unspecified Code(s): E78.5 - Hyperlipidemia, unspecified Status: Chronic Assessment and Plan: LDL well controlled 45 on low-dose atorvastatin 20 mg daily. Additional Plan OK to discharge from cardiac standpoint See discharge instructions for follow-up Plan discussed with Dr Meier [id number] 03/03/2020 Time Spent With Patient Time with patient: less than 15 minutes Subjective Date/time seen: 03/03/20 12:19 Interval history: Follow-up for: Chest discomfort, coronary artery disease with previous intervention to LAD and diagonal branch, slight decline in LV systolic function on recent echocardiogram Date of service: 03/03/2020. Subjective: Still has some soreness in the left chest. Denied shortness of breath with exertional activity. No palpitations. Tires with exertional activity. Review of Systems Review of Systems: All systems reviewed & are unremarkable except as noted in HPI and below Constitutional: Constitutional: Reports as per HPI and Reports fatigue Eyes: Eyes: Reports loss of vision ENT: Reports Normal hearing present Cardiovascular: Cardiovascular: Denies palpitations, Denies dyspnea, Denies dyspnea on exertion and Reports other (Left-sided chest soreness) Respiratory: Respiratory: Denies dyspnea and Denies dyspnea on exertion Gastrointestinal: Gastrointestinal: Reports as per HP
[2020-03-03 12:29] LABS: Glucose Point of Care 238 (65-105)
[2020-03-03] MEDS: INSULIN ASPART (*BKC) 100 UNITS/ML SUB-Q (12:40)
== END 2020-03-03 14:46 | disposition home or self-care (01) ==
LOC: ANHED 22:31 → ANHIMU 03-02 00:16
PROVIDERS: Physician Assistant; Specialist; Admitting Provider Family Medicine; Emergency Provider Emergency Medicine; PCP Family Medicine; Visit Provider Family Medicine
PROC: 4A023N7 Measurement of Cardiac Sampling and Pressure, Left Heart, Percutaneous Approach (ICD-10-PCS; CPT 93452; principal; 2020-03-02 14:00)
DX: I25.110 Atherosclerotic heart disease of native coronary artery with unstable angina pectoris (principal); I25.5 Ischemic cardiomyopathy; R07.9 Chest pain, unspecified; D72.825 Bandemia; E11.9 Type 2 diabetes mellitus without complications; I10 Essential (primary) hypertension; E78.5 Hyperlipidemia, unspecified; G47.33 Obstructive sleep apnea (adult) (pediatric); I25.10 Atherosclerotic heart disease of native coronary artery without angina pectoris; Z95.5 Presence of coronary angioplasty implant and graft; Z79.4 Long term (current) use of insulin; Z79.82 Long term (current) use of aspirin; Z79.84 Long term (current) use of oral hypoglycemic drugs
CPT/HCPCS: 36415; 71046; 80048; 80061; 80076; 83036; 83690; 84484; 85025; 85027; 85610; 85730; 93005; 93458; 96374; 99285; A9270; C1760; C1887; C1894; G0269; G0378; J1644; J1815; J2250; J2270; J3010; J7040

== ENCOUNTER 2022-04-21 11:07 | Outpatient (CLI) | payer MEDICARE, SELFPAY ==
[2022-04-21 12:26] LABS: Anion Gap 10 mmol/L (8-16); Blood Urea Nitrogen 18 mg/dL (9-20); Calcium 9.6 mg/dL (8.4-10.2); Carbon Dioxide 24 mmol/L (22-30); Chloride 104 mmol/L (98-107); Estimated Glomerular Filt Rate > 60; Glucose 113 mg/dL (65-110); Potassium 4.7 mmol/L (3.4-5.0); Sodium 138 mmol/L (137-145)
== END 2022-04-21 11:08 | disposition home or self-care (01) ==
PROVIDERS: PCP Family Medicine; Visit Provider Internal Medicine Cardiovascular Disease
DX: I25.5 Ischemic cardiomyopathy (principal)
CPT/HCPCS: 36415; 80048

== ENCOUNTER 2023-04-17 15:00 | Outpatient (RCR) | payer SELFPAY | END 2023-04-19 16:46 | disposition home or self-care (01) | LOC: ANHCPREHAB 15:00 | PROVIDERS: PCP Family Medicine; Visit Provider Family Medicine | DX: I50.9 Heart failure, unspecified (principal); I25.5 Ischemic cardiomyopathy; I10 Essential (primary) hypertension; E11.65 Type 2 diabetes mellitus with hyperglycemia; G47.33 Obstructive sleep apnea (adult) (pediatric); E66.3 Overweight | CPT/HCPCS: 99199 ==